=== PATIENT | female | born 1980 | race Caucasian/White ===

== ENCOUNTER 2019-07-21 06:44 | Emergency (ER) | payer SELFPAY ==
[2019-07-21 07:21] VITALS: BMI 28.3
--- NOTE | 2019-07-21 07:40 | PDOC ---
History of Present Illness - General Chief Complaint: Pain, Acute Stated Complaint: VOMITING Time Seen by Provider: 07/21/19 07:30 - History of Present Illness Initial Comments: 07/21/19 07:37 CHIEF COMPLAINT: left flank pain, vomiting HISTORY OF PRESENT ILLNESS: 39 yo F presents to ED with vomiting 15-20 times a day since . Patient reports that she went to urgent care on and was diagnosed with pyelonephritis. She has been compliant with taking Cipro and Bactrim since but patient denies any improvement in symptoms. She reports that she has developed left flank pain since . Endorses fever yesterday that was resolved after taking Tylenol. Patient denies any diarrhea. No recent travel or sick contacts. PAST MEDICAL HISTORY: Denies past medical history FAMILY HISTORY: Denies SOCIAL HISTORY: Denies tobacco, alcohol, illicit drug use. SURGICAL HISTORY: Denies ALLERGIES: No known drug allergies REVIEW OF SYSTEMS General/Constitutional: Fever yesterday. Denies weakness, weight change. HEENT: Denies change in vision. Denies ear pain or discharge. Denies sore throat. Cardiovascular: Denies chest pain or shortness of breath. Respiratory: Denies cough, wheezing, or hemoptysis. Gastrointestinal: Persistent vomiting x 4 days. Denies diarrhea, constipation, rectal bleeding. Genitourinary: Denies dysuria, frequency, or change in urination. Musculoskeletal: Left flank pain. Denies joint or muscle swelling or pain. Denies neck or back pain. Skin and breasts: Denies rash or easy bruising. Neurologic: Denies headache, vertigo, loss of consciousness, or loss of sensation. Psychiatric: Denies depression or anxiety. PHYSICAL EXAM General Appearance: Well-appearing, appropriately dressed. No apparent distress. HEENT: EOMI, PERRLA, normal ENT inspection, normal voice, TMs normal, pharynx normal. No conjunctival pallor. No photophobia, scleral icterus. Neck: Supple. Trachea midline. No tenderness, rigidity, carotid bruit, stridor , lymphadenopathy, or thyromegaly. Respiratory/Chest: Lungs CTAB. No shortness of breath, chest tenderness, respiratory distress, accessory muscle use. No crackles, rales, rhonchi, stridor , wheezing, dullness Cardiovascular: RRR. S1, S2. No JVD, murmur, bradycardia, tachycardia. Vascular Pulses: Dorsalis-Pedis (R): 2+, Dorsalis-Pedis (L): 2+ Gastrointestinal/Abdominal: Normal bowel sounds. Abdomen soft, non-distended. No tenderness or rebound tenderness. No organomegaly, pulsatile mass, guarding , hernia, hepatomegaly, splenomegaly. Lymphatic: No adenopathy, tenderness. Musculoskeletal/Extremities: L CVA tenderness.FROM of all extremities, normal capillary refill. Pelvis Stable. No tenderness to extremities, pedal edema, swelling, erythema or deformity. Integumentary: Appropriate color, dry, warm. 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 Fully oriented, alert. Appropriate mood/affect. Motor strength 5/5. No appreciable EOM palsy, facial droop or sensory deficit. Past History - Past Medical History Allergies/Adverse Reactions: Allergies Allergy/AdvReac Type Severity Reaction Status Date / Time No Known Allergies Allergy Verified 07/21/19 07:26 Home Medications: Ambulatory Orders No Home Medications 0 dose .ROUTE UTDICT 10/18/12 Ibuprofen [Ibu] 600 mg PO TID #20 tablet 07/21/19 Ondansetron HCl [Zofran] 4 mg PO TID PRN #30 tablet 07/21/19 Tamsulosin HCl [Flomax] 0.4 mg PO DAILY #14 cap.er.24h 07/21/19 COPD: No - Immunization History Td Vaccination: Yes - Psycho Social/Smoking Cessation Hx Smoking Status: No Smoking History: Never smoked Number of Cigarettes Smoked Daily: 0 Information on smoking cessation initiated: No Hx Alcohol Use: No Drug/Substance Use Hx: No *Physical Exam - Vital Signs Last Vital Signs Temp Pulse Resp BP Pulse Ox 99.7 F H 99 H 14 118/72 99 07/21/19 07:16 07/21/19 07:16 07/21/19 07:16 07/21/19 07:16 07/21/19 07:16 ED Treatment Course - LABORATORY CBC & Chemistry Diagram: 07/21/19 09:55 07/21/19 08:20 Medical Decision Making - Medical Decision Making 07/21/19 08:05 39 yo F presents to ED with vomiting 15-20 times a day since . -labs, urine -Tylenol, Zofran Discharge - Discharge Information Problems reviewed: Yes Clinical Impression/Diagnosis: Kidney stone on left side Condition: Stable Disposition: HOME - Admission No - Additional Discharge Information Prescriptions: Ibuprofen [Ibu] 600 mg PO TID #20 tablet Ondansetron HCl [Zofran] 4 mg PO TID PRN #30 tablet PRN Reason: Nausea And/Or Vomiting Tamsulosin HCl [Flomax] 0.4 mg PO DAILY #14 cap.er.24h - Follow up/Referral - Patient Discharge Instructions Patient Printed Discharge Instructions: DI for Kidney Stones Additional Instructions: As discussed, please continue taking the antibiotics that were prescribed to you by the urgent care clinic. Take all new medications in addition as prescribed. Follow-up with the urologist referral that was provided at the urgent care clinic. If you develop any persistent vomiting, diarrhea, fever, or pain unrelieved by the medications provided, or you develop any new or worsening symptoms, please return to the ER immediately. - Post Discharge Activity
[2019-07-21] MEDS ORDERED: ACETAMINOPHEN 500 MG TABLET (FP) PO ONE (07:41)
[2019-07-21] MEDS ORDERED: ACETAMINOPHEN 325 MG TABLET (FP) ONE (07:52)
[2019-07-21] MEDS ORDERED: ONDANSETRON 4 MG/2 ML VIAL IVPUSH ONE (07:59)
--- NOTE | 2019-07-21 08:10 | PDOC ---
*Physical Exam - Vital Signs Last Vital Signs Temp Pulse Resp BP Pulse Ox 99.7 F H 99 H 14 118/72 99 07/21/19 07:16 07/21/19 07:16 07/21/19 07:16 07/21/19 07:16 07/21/19 07:16 ED Treatment Course - LABORATORY CBC & Chemistry Diagram: 07/21/19 09:55 07/21/19 08:20 Medical Decision Making - Medical Decision Making 07/21/19 08:10 Pt seen by Midlevel Provider under my direct supervision I was available for consultation Ancillary studies reviewed CT - 3mm nonobstructing calculus upper pole left kidney Laboratory Tests 07/21/19 07/21/19 07/21/19 08:20 08:20 08:20 WBC Hgb Hct Plt Count BUN 9.2 Creatinine 0.8 Lactic Acid Urine Ketones 3+ H Urine Blood 3+ H Ur Leukocyte Esterase Negative Urine WBC (Auto) 1-4 Urine RBC (Auto) 0-3 Urine HCG, Qual Negative 07/21/19 07/21/19 08:20 09:55 WBC 7.5 Hgb 11.7 Hct 34.7 Plt Count 202 BUN Creatinine Lactic Acid 1.3 Urine Ketones Urine Blood Ur Leukocyte Esterase Urine WBC (Auto) Urine RBC (Auto) Urine HCG, Qual I agree with plan as outlined by Midlevel Provider 07/21/19 10:54 07/21/19 12:54 Discharge - Discharge Information Problems reviewed: Yes Clinical Impression/Diagnosis: Kidney stone on left side Condition: Stable Disposition: HOME - Admission No - Additional Discharge Information Prescriptions: Ibuprofen [Ibu] 600 mg PO TID #20 tablet Ondansetron HCl [Zofran] 4 mg PO TID PRN #30 tablet PRN Reason: Nausea And/Or Vomiting Tamsulosin HCl [Flomax] 0.4 mg PO DAILY #14 cap.er.24h - Follow up/Referral - Patient Discharge Instructions Patient Printed Discharge Instructions: DI for Kidney Stones Additional Instructions: As discussed, please continue taking the antibiotics that were prescribed to you by the urgent care clinic. Take all new medications in addition as prescribed. Follow-up with the urologist referral that was provided at the urgent care clinic. If you develop any persistent vomiting, diarrhea, fever, or pain unrelieved by the medications provided, or you develop any new or worsening symptoms, please return to the ER immediately. - Post Discharge Activity
[2019-07-21] MEDS ORDERED: ONDANSETRON 4 MG/2 ML VIAL ONE (08:39)
[2019-07-21 09:26] LABS: ALBUMIN 3.1 g/dl (3.4-5.0); BILIRUBIN,TOTAL 0.4 mg/dL (0.2-1); BLOOD UREA NITROGEN 9.2 mg/dL (7-18); CALCIUM 8.3 mg/dL (8.5-10.1); CREATININE 0.8 mg/dL (0.55-1.3); POTASSIUM 3.4 mmol/L (3.5-5.1); TOT PROT 7.4 g/dl (6.4-8.2)
[2019-07-21 10:07] LABS: BASO % 0.2 % (0-2.0); HEMATOCRIT 34.7 % (32.4-45.2); HEMOGLOBIN 11.7 GM/dL (10.7-15.3); LYMPH % 10.6 % (8-40); MCH 27.9 pg (25.7-33.7); MCHC 33.5 g/dl (32.0-36.0); MEAN CELL VOLUME 83.1 fl (80-96); MEAN PLT VOLUME 8.9 fl (7.5-11.1); NEUT % 85.2 % (42.8-82.8); PLATELET COUNT 202 K/MM3 (134-434); RBC 4.18 M/mm3 (3.60-5.2); RDW 15.2 % (11.6-15.6); WHITE BLOOD COUNT 7.5 K/mm3 (4.0-10.0)
[2019-07-21 10:47] LABS: URINE APPEARANCE CLEAR; URINE BILIRUBIN NEGATIVE (NEGATIVE); URINE COLOR DK YELLOW; URINE GLUCOSE (UA) NEGATIVE (NEGATIVE); URINE KETONE 3+ (NEGATIVE); URINE LEUK ESTERASE NEGATIVE (NEGATIVE); URINE NITRITE NEGATIVE (NEGATIVE); URINE PROTEIN 2+ (NEGATIVE); URINE UROBILINOGEN 0.2 mg/dL (0.2-1.0)
[2019-07-21] MEDS ORDERED: SODIUM CHLORIDE 0.9% 500 ML INFUS.BAG IV ONE (11:11)
[2019-07-21 11:35] LABS: EPI CELLS RARE /HPF (0-5/HPF); URINE RBC 0-3 /hpf (0-4)
[2019-07-21 11:36] LABS: URINE BACTERIA NONE SEEN /hpf (NEGATIVE)
[2019-07-21 12:05] VITALS: BP 119/69; PULSE 79; TEMP 98
== END 2019-07-21 12:53 | disposition home or self-care (01) ==
LOC: JER 06:44
PROC: 3E033GC Introduction of Other Therapeutic Substance into Peripheral Vein, Percutaneous Approach (ICD-10-PCS; principal; 2019-07-21)
DX: N20.0 Calculus of kidney (principal)
CPT/HCPCS: 36415; 74176-TC; 80053; 81003; 83605; 83690; 84703; 85025; 87040; 87086; 99282-25

== ENCOUNTER 2020-06-21 12:56 | Emergency (ER) | payer BC ==
[2020-06-21 13:01] VITALS: BMI 30.2
--- OUTSIDE RECORDS SUMMARY | 2020-06-21 13:23 | XMS ---
:1980 Author Organization [facility] Support Name Relationship Address Phone CROWN AWARDS Unavailable [address] [place] [address] CROWN REWARDS Unavailable [address] [phone] [place] [address] SAMMY, RADHA FRIEND [address] [facility] [place] [address] Re-disclosure Warning The records that you are about to access may contain information from federally- assisted alcohol or drug abuse programs. If such information is present, then the following federally mandated warning applies: This information has been disclosed to you from records protected by federal confidentiality rules (42 CFR part 2). The federal rules prohibit you from making any further disclosure of this information unless further disclosure is expressly permitted by the written consent of the person to whom it pertains or as otherwise permitted by 42 CFR part 2. A general authorization for the release of medical or other information is NOT sufficient for this purpose. The Federal rules restrict any use of the information to criminally investigate or prosecute any alcohol or drug abuse patient.The records that you are about to access may contain highly sensitive health information, the redisclosure of which is protected by Article 27-F of the [facility] Public Health law. If you continue you may haveaccess to information: Regarding HIV / AIDS; Provided by facilities licensed or operated by the [facility] Office of Mental Health; or Provided by the [facility] Office for People With Developmental Disabilities. If such information is present, then the following [facility] mandated warning applies: This information has been disclosed to you from confidential records which are protected by state law. State law prohibits you from making any further disclosure of this information without the specific written consent of the person to whom it pertains, or as otherwise permitted by law. Any unauthorized further disclosure in violation of state law may result in a fine or skilled nursing sentence or both. A general authorization for the release of medical or other information is NOT sufficient authorization for further disclosure. Insurance Providers Payer name Policy type Policy ID Covered Covered green party's Policy P susanna / Coverage green party ID relationship to Patel Inf ormation type patel BC OUT OF [id number] SP [id number] [address] SELF PAY SP INSURANCE HIP MEDICAID [id number] SP [id number]
--- NOTE | 2020-06-21 13:56 | PDOC ---
History of Present Illness - General Chief Complaint: Nausea/Vomiting Stated Complaint: VOMITING/NAUSEA Time Seen by Provider: 06/21/20 13:21 History Source: Patient - History of Present Illness Timing/Duration: reports: other (2 days) Abdominal Pain Onset Location: reports: other Past History - Medical History Allergies/Adverse Reactions: Allergies Allergy/AdvReac Type Severity Reaction Status Date / Time No Known Allergies Allergy Verified 06/21/20 12:59 Home Medications: Ambulatory Orders No Home Medications 0 dose .ROUTE UTDICT 10/18/12 Ibuprofen [Ibu] 600 mg PO TID #20 tablet 07/21/19 Ondansetron HCl [Zofran] 4 mg PO TID PRN #30 tablet 07/21/19 Tamsulosin HCl [Flomax] 0.4 mg PO DAILY #14 cap.er.24h 07/21/19 Ibuprofen [Motrin -] 800 mg PO Q6H #30 tablet 06/21/20 Sulfamethoxazole/Trimethoprim [Bactrim Ds -] 1 tab PO BID #14 tablet 06/21/20 COPD: No - Reproductive History Is Patient Now?: No - Immunization History Td Vaccination: Yes - Psycho-Social/Smoking History Smoking Status: No Smoking History: Never smoked Number of Cigarettes Smoked Daily: 0 - Substance Abuse Hx (Audit-C & DAST Scrn) How often the patient has a drink containing alcohol: Never Score: In Men: 4 or > Positive; In Women: 3 or > Positive: 0 Screen Result (Pos requires Nsg. Audit-10AR): Negative In the last yr the pt used illegal drug/Rx for NonMed reason: No Score: Yes response is considered Positive: 0 Screen Result (Positive result requires Nsg. DAST-10): Negative Review of Systems - Review of Systems Constitutional: Yes: Fever ABD/GI: Yes: Nausea, Vomiting. No: Blood Streaked Bowels, Constipated, Diarrhea, Rectal Bleeding : No: Dysuria, Flank Pain *Physical Exam - Vital Signs Last Vital Signs Temp Pulse Resp BP Pulse Ox 99.0 F 107 H 18 120/77 99 06/21/20 12:59 06/21/20 12:59 06/21/20 12:59 06/21/20 12:59 06/21/20 12:59 - Physical Exam General Appearance: Yes: Appropriately Dressed. No: Apparent Distress HEENT: positive: Normal Voice Neck: positive: Supple Respiratory/Chest: negative: Respiratory Distress Gastrointestinal/Abdominal: positive: Tender (poorly localied minimal ttp on exam) Musculoskeletal: negative: CVA Tenderness Integumentary: positive: Dry, Warm Neurologic: positive: Fully Oriented, Alert, Normal Mood/Affect ED Treatment Course - LABORATORY CBC & Chemistry Diagram: 06/21/20 13:51 06/21/20 13:51 Medical Decision Making - Medical Decision Making 06/21/20 14:04 40 yo morbidly obesed female, h/o uncomplicated renal stone (07/31), s/p remote osmin, here w/ lower abd pain w/ n/v and low grade x 2 days. No dysuria, vag discharge or change in BM. No h/o similar episode. Does not feel like renal stone. Menses finished 4 days ago See exam R/o diverticulitis vs uti/pyelo vs recurrent renal stone, unlikely appendicitis Exam remarkable for heart rate of 107 with poorly localized tenderness to lower abdomen on exam pain control -labs -CT 06/21/20 14:07 06/21/20 16:31 CT read as ~97cm cyst within the upper pelvis that was seen on CT July of last year when cyst measured 8 x 6 cm. Per radiology, this structure appears to be separate from the ovaries. Also seen is an "interval development of dilated jejunal bowel loop within the left paramedian aspect of the abdomen" which could be on the basis of mild to early SBO. Patient is passing gas and having bowel movements so SBO unlikely at this time. No e/o appy/diverticulitis on CT. Labs unremarkable, mild transaminitis seen on prior labs. UA w/ ~700 bacteria w/ 500s wbc and 2+ LE. Will get ultrasound at this time to better evaluate cystic structure seen in pelvis. Possibly treat for ? early pyelo 06/21/20 19:07 Ultrasound read as no uterine mass. There is bilateral ovarian cysts with no evidence of torsion and about 7 x 9 cm cyst in the R upper adnexa. On reassessment patient states she feels significantly better and well enough to go home. Repeat abdominal exam benign. Will treat for possible pyelo given UA results Upon discharge, rpt HR 97 w/ T 97F. No further e/o n/v. Will f/u on ucx. Strict return precautions given to patient. Patient also instructed that she needs to follow-up with her [facility] given this chronic cystlike structure in her right pelvis. Discharge - Discharge Information Problems reviewed: Yes Clinical Impression/Diagnosis: Lower abdominal pain Fever Qualifiers: Fever type: unspecified Qualified Code(s): R50.9 - Fever, unspecified Condition: Improved Disposition: HOME - Additional Discharge Information Prescriptions: Sulfamethoxazole/Trimethoprim [Bactrim Ds -] 1 tab PO BID #14 tablet Ibuprofen [Motrin -] 800 mg PO Q6H #30 tablet - Follow up/Referral - Patient Discharge Instructions Additional Instructions: You were treated for possible early kidney infection as there were no other findings on your blood work, CAT scan or ultrasound to explain your symptoms. Please take medication as directed but if symptoms persist and or worsen, return to the ED immediately - Post Discharge Activity
[2020-06-21] MEDS ORDERED: SODIUM CHLORIDE 1,000 ML IV STA (14:00)
[2020-06-21] MEDS ORDERED: KETOROLAC TROMETHAMINE 30 MG/1 ML VIAL IVPUSH ONE (14:00)
[2020-06-21] MEDS ORDERED: ONDANSETRON 4 MG/2 ML VIAL IVPUSH ONE (14:00)
[2020-06-21] MEDS ORDERED: KETOROLAC TROMETHAMINE 30 MG/1 ML VIAL ONE (14:02)
[2020-06-21 14:32] LABS: BASO % 0.3 % (0-2.0); HEMATOCRIT 38.7 % (32.4-45.2); HEMOGLOBIN 13.2 GM/dL (10.7-15.3); LYMPH % 14.6 % (8-40); MCH 29.7 pg (25.7-33.7); MCHC 34.2 g/dl (32.0-36.0); MEAN CELL VOLUME 86.9 fl (80-96); MEAN PLT VOLUME 9.5 fl (7.5-11.1); NEUT % 81.1 % (42.8-82.8); PLATELET COUNT 196 K/MM3 (134-434); RBC 4.45 M/mm3 (3.60-5.2); RDW 14.9 % (11.6-15.6); WHITE BLOOD COUNT 10.5 K/mm3 (4.0-10.0)
[2020-06-21 14:38] LABS: EPI CELLS 6 /uL (0-25.1); HCG,QUALITATIVE URINE Negative; HYALINE CASTS 20 /uL (0-3.1); URINE APPEARANCE CLEAR; URINE BACTERIA 746 /uL (0-1359); URINE BILIRUBIN NEGATIVE (NEGATIVE); URINE COLOR DK YELLOW; URINE GLUCOSE (UA) NEGATIVE (NEGATIVE); URINE KETONE 1+ (NEGATIVE); URINE LEUK ESTERASE 2+ (NEGATIVE); URINE NITRITE NEGATIVE (NEGATIVE); URINE PROTEIN 2+ (NEGATIVE); URINE RBC 244 /uL (0-23.9); URINE WBC 523 /uL (0-25.8)
[2020-06-21 14:59] LABS: ALBUMIN 3.9 g/dl (3.4-5.0); BILIRUBIN,TOTAL 0.7 mg/dL (0.2-1); BLOOD UREA NITROGEN 9.1 mg/dL (7-18); CALCIUM 8.5 mg/dL (8.5-10.1); POTASSIUM 3.3 mmol/L (3.5-5.1); TOT PROT 8.1 g/dl (6.4-8.2)
[2020-06-21] MEDS ORDERED: ACETAMINOPHEN 325 MG TABLET (FP) PO ONE (17:46)
[2020-06-21] MEDS ORDERED: CEFTRIAXONE 1 GM in DEXTROSE 5%-WATER - 100 ML IVPB ONE (17:46)
[2020-06-21] MEDS ORDERED: ACETAMINOPHEN 325 MG TABLET (FP) ONE (17:53)
[2020-06-21] MEDS ORDERED: CEFTRIAXONE 1 GM/50 ML BAG ONE (17:53)
[2020-06-21 19:38] VITALS: BP 109/67; PULSE 91; TEMP 99.5
== END 2020-06-21 19:38 | disposition home or self-care (01) ==
LOC: JER 12:56
PROC: 3E03329 Introduction of Other Anti-infective into Peripheral Vein, Percutaneous Approach (ICD-10-PCS; principal; 2020-06-21)
PROC: 3E033GC Introduction of Other Therapeutic Substance into Peripheral Vein, Percutaneous Approach (ICD-10-PCS; 2020-06-21)
PROC: 3E0337Z Introduction of Electrolytic and Water Balance Substance into Peripheral Vein, Percutaneous Approach (ICD-10-PCS; 2020-06-21)
DX: R10.30 Lower abdominal pain, unspecified (principal); R50.9 Fever, unspecified
CPT/HCPCS: 36415; 74177-TC; 76856-TC; 80053; 81003; 84703; 85025; 87086; 87186; 99285-25; Q9967

== ENCOUNTER 2023-07-31 11:26 | Inpatient (IN) | payer BC, OTHER ==
[2023-07-31] MEDS ORDERED: SODIUM CHLORIDE 1,000 ML IV STA ×2 (12:11→17:28)
[2023-07-31] MEDS ORDERED: ACETAMINOPHEN 1000 MG/100 ML BAG IVPB ONE (12:30)
[2023-07-31] MEDS ORDERED: ACETAMINOPHEN INJECTION 100 ML IVPB ONE (12:44)
[2023-07-31 12:48] LABS: BASO % 0.8 % (0-2.0); EOS % 2.3 % (0-4.5); HEMATOCRIT 44.2 % (32.4-45.2); HEMOGLOBIN 15.2 GM/dL (10.7-15.3); LYMPH % 33.1 % (8-40); MCH 29.4 pg (25.7-33.7); MCHC 34.4 g/dl (32.0-36.0); MEAN CELL VOLUME 85.2 fl (80-96); MEAN PLT VOLUME 9.9 fl (7.5-11.1); MONO % 4.2 % (3.8-10.2); NEUT % 59.6 % (42.8-82.8); PLATELET COUNT 227 10^3/uL (134-434); RBC 5.19 M/mm3 (3.60-5.2); RDW 13.3 % (11.6-15.6); WHITE BLOOD COUNT 10.1 K/mm3 (4.0-10.0)
[2023-07-31 12:52] LABS: HCG,QUALITATIVE URINE Negative
[2023-07-31 13:08] LABS: POTASSIUM 3.7 mmol/L (3.5-5.1)
[2023-07-31 13:10] LABS: PH,URINE 5.5 (5.0-8.0); URINE APPEARANCE CLOUDY; URINE BILIRUBIN NEGATIVE (NEGATIVE); URINE COLOR YELLOW; URINE GLUCOSE (UA) 4+ (NEGATIVE); URINE KETONE 40 mg/dl (NEGATIVE); URINE PROTEIN 2+ (NEGATIVE)
[2023-07-31 13:11] LABS: CALCIUM 9.3 mg/dL (8.5-10.1); URINE LEUK ESTERASE NEGATIVE (NEGATIVE); URINE NITRITE NEGATIVE (NEGATIVE); URINE UROBILINOGEN 0.2 mg/dL (0.2-1.0)
[2023-07-31 13:12] LABS: BLOOD UREA NITROGEN 10.6 mg/dL (7-18)
[2023-07-31 13:15] LABS: CREATININE 0.9 mg/dL (0.55-1.3); TOT PROT 7.9 g/dl (6.4-8.2)
[2023-07-31 13:16] LABS: BILIRUBIN,TOTAL 0.5 mg/dL (0.2-1)
[2023-07-31] MEDS ORDERED: ONDANSETRON 4 MG/2 ML VIAL IVPUSH ONE (14:19)
[2023-07-31] MEDS ORDERED: ONDANSETRON 4 MG/2 ML VIAL ONE (14:26)
[2023-07-31] MEDS ORDERED: morphine CARPU-JECT 2 MG/1 ML DISP.SYRIN IVPUSH ONE ×2 (14:39→17:28)
[2023-07-31 18:32] LABS: ACTIVATED PTT 31.1 SECONDS (25.2-36.5); INR 1.09 (0.83-1.09); PROTHROMBIN TIME (PATIENT) 12.6 SEC (9.7-13.0)
[2023-07-31] MEDS ORDERED: INSULIN SLIDING SCALE (NOVOLOG) 1 VIAL SQ SCH ×2 (22:00→22:29)
[2023-07-31] MEDS ORDERED: morphine SULFATE 4 MG/ML VIAL IVPUSH PRN (22:05)
[2023-07-31] MEDS: LISINOPRIL 10 MG TABLET PO SCH (22:38)
[2023-07-31 23:28] VITALS: BMI 28.9
[2023-08-01] MEDS: INSULIN SLIDING SCALE (NOVOLOG) 1 VIAL SQ SCH ×4 (06:05→22:36)
[2023-08-01] MEDS: ACETAMINOPHEN 325 MG TABLET (FP) PO PRN ×2 (06:08→17:43)
[2023-08-01 09:16] LABS: HEMATOCRIT 42.4 % (32.4-45.2); HEMOGLOBIN 13.9 GM/dL (10.7-15.3); MCH 28.7 pg (25.7-33.7); MCHC 32.8 g/dl (32.0-36.0); MEAN CELL VOLUME 87.5 fl (80-96); MEAN PLT VOLUME 10.4 fl (7.5-11.1); PLATELET COUNT 225 10^3/uL (134-434); RBC 4.85 M/mm3 (3.60-5.2); RDW 13.2 % (11.6-15.6); WHITE BLOOD COUNT 9.6 K/mm3 (4.0-10.0)
[2023-08-01] MEDS: HYDROCHLOROTHIAZIDE 12.5 MG CAPSULE (FP) PO SCH (09:23)
[2023-08-01] MEDS: ENOXAPARIN NA (PORCINE) 40 MG/0.4 ML DISP.SYRIN SQ SCH (09:24)
[2023-08-01 09:35] LABS: POTASSIUM 3.5 mmol/L (3.5-5.1)
[2023-08-01 09:44] LABS: ALBUMIN 3.4 g/dl (3.4-5.0); BLOOD UREA NITROGEN 8.3 mg/dL (7-18); CALCIUM 8.8 mg/dL (8.5-10.1)
[2023-08-01 09:45] LABS: MAGNESIUM 1.9 mg/dL (1.8-2.4)
[2023-08-01 09:48] LABS: CREATININE 0.7 mg/dL (0.55-1.3); PHOSPHOROUS 2.7 mg/dL (2.5-4.9)
[2023-08-01 09:50] LABS: TOT PROT 7.3 g/dl (6.4-8.2)
[2023-08-01 09:51] LABS: BILIRUBIN,TOTAL 0.9 mg/dL (0.2-1)
[2023-08-01] MEDS ORDERED: INSULIN (NOVOLOG MIX 70/30) 100 UNITS/ML MDV SQ ONE (11:02)
[2023-08-01] MEDS ORDERED: INSULIN (NOVOLOG) ASPART 100 UNITS/ML 10ML VIAL ONE (11:06)
[2023-08-01] MEDS ORDERED: oxyCODONE HCL 5 MG TABLET PO PRN ×2 (12:43)
[2023-08-01] MEDS: oxyCODONE HCL 5 MG TABLET PO PRN (13:30)
[2023-08-01] MEDS: INSULIN (NOVOLOG) ASPART 100 UNITS/ML 10ML VIAL SQ SCH (16:37)
[2023-08-01] MEDS: ONDANSETRON 4 MG/2 ML VIAL IVPUSH PRN (17:45)
[2023-08-01] MEDS: LISINOPRIL 10 MG TABLET PO SCH ×2 (21:52→22:34)
[2023-08-01] MEDS: INSULIN (LEVEMIR) 100 UNITS/ML UNITS SQ SCH (21:53)
[2023-08-02] MEDS: INSULIN SLIDING SCALE (NOVOLOG) 1 VIAL SQ SCH ×4 (06:36→21:47)
[2023-08-02] MEDS: INSULIN (NOVOLOG) ASPART 100 UNITS/ML 10ML VIAL SQ SCH ×3 (06:38→16:47)
[2023-08-02] MEDS: INSULIN (LEVEMIR) 100 UNITS/ML UNITS SQ SCH ×2 (06:39→21:47)
[2023-08-02 09:20] LABS: BASO % 0.7 % (0-2.0); EOS % 4.1 % (0-4.5); HEMATOCRIT 40.8 % (32.4-45.2); HEMOGLOBIN 14.2 GM/dL (10.7-15.3); LYMPH % 30.6 % (8-40); MCH 29.7 pg (25.7-33.7); MCHC 34.7 g/dl (32.0-36.0); MEAN CELL VOLUME 85.5 fl (80-96); MEAN PLT VOLUME 10.4 fl (7.5-11.1); MONO % 5.2 % (3.8-10.2); NEUT % 59.4 % (42.8-82.8); PLATELET COUNT 222 10^3/uL (134-434); RBC 4.77 M/mm3 (3.60-5.2); RDW 13.5 % (11.6-15.6); WHITE BLOOD COUNT 6.8 K/mm3 (4.0-10.0)
[2023-08-02 09:44] LABS: POTASSIUM 3.1 mmol/L (3.5-5.1)
[2023-08-02] MEDS: ENOXAPARIN NA (PORCINE) 40 MG/0.4 ML DISP.SYRIN SQ SCH (09:58)
[2023-08-02] MEDS: HYDROCHLOROTHIAZIDE 12.5 MG CAPSULE (FP) PO SCH (09:59)
[2023-08-02 10:07] LABS: CARCINOEMBRYONIC ANTIGEN 2.6 ng/mL (0.0-4.7)
[2023-08-02 10:08] LABS: CALCIUM 8.9 mg/dL (8.5-10.1)
[2023-08-02 10:09] LABS: ALBUMIN 3.3 g/dl (3.4-5.0); BLOOD UREA NITROGEN 11.4 mg/dL (7-18); MAGNESIUM 2.1 mg/dL (1.8-2.4)
[2023-08-02 10:11] LABS: CREATININE 0.7 mg/dL (0.55-1.3)
[2023-08-02 10:12] LABS: BILIRUBIN,TOTAL 0.9 mg/dL (0.2-1)
[2023-08-02 10:13] LABS: TOT PROT 6.9 g/dl (6.4-8.2)
[2023-08-02] MEDS ORDERED: SODIUM CHLORIDE 1,000 ML IV SCH (12:45)
[2023-08-02] MEDS: LIDOCAINE 4% PATCH TP SCH (13:04)
[2023-08-02] MEDS: KETOROLAC TROMETHAMINE 10 MG TABLET PO PRN (13:05)
[2023-08-02] MEDS ORDERED: POTASSIUM CHLORIDE ORAL LIQUID 20 MEQ/15 ML PO ONE (13:34)
[2023-08-02] MEDS: ONDANSETRON 4 MG/2 ML VIAL IVPUSH PRN (19:12)
[2023-08-02] MEDS ORDERED: INSULIN (NOVOLOG) ASPART 100 UNITS/ML 10ML VIAL ONE (21:33)
[2023-08-02] MEDS: LIDOCAINE PATCH REMOVAL MC SCH (21:55)
[2023-08-03] MEDS: INSULIN (LEVEMIR) 100 UNITS/ML UNITS SQ SCH ×2 (06:10→22:12)
[2023-08-03] MEDS: INSULIN (NOVOLOG) ASPART 100 UNITS/ML 10ML VIAL SQ SCH ×3 (06:11→17:33)
[2023-08-03] MEDS: INSULIN SLIDING SCALE (NOVOLOG) 1 VIAL SQ SCH ×4 (06:14→22:13)
[2023-08-03 09:57] LABS: BASO % 0.8 % (0-2.0); EOS % 4.2 % (0-4.5); HEMATOCRIT 40.3 % (32.4-45.2); HEMOGLOBIN 13.1 GM/dL (10.7-15.3); LYMPH % 33.4 % (8-40); MCH 28.5 pg (25.7-33.7); MCHC 32.4 g/dl (32.0-36.0); MEAN CELL VOLUME 87.9 fl (80-96); MEAN PLT VOLUME 10.2 fl (7.5-11.1); MONO % 5.5 % (3.8-10.2); NEUT % 56.1 % (42.8-82.8); PLATELET COUNT 199 10^3/uL (134-434); RBC 4.58 M/mm3 (3.60-5.2); RDW 13.2 % (11.6-15.6); WHITE BLOOD COUNT 5.6 K/mm3 (4.0-10.0)
[2023-08-03 10:05] LABS: POTASSIUM 3.4 mmol/L (3.5-5.1)
[2023-08-03] MEDS: ENOXAPARIN NA (PORCINE) 40 MG/0.4 ML DISP.SYRIN SQ SCH (10:33)
[2023-08-03] MEDS: LIDOCAINE 4% PATCH TP SCH (10:33)
[2023-08-03 10:34] LABS: CALCIUM 8.4 mg/dL (8.5-10.1)
[2023-08-03 10:35] LABS: BLOOD UREA NITROGEN 9.3 mg/dL (7-18); MAGNESIUM 2.1 mg/dL (1.8-2.4)
[2023-08-03 10:38] LABS: CREATININE 0.7 mg/dL (0.55-1.3)
[2023-08-03 10:39] LABS: TOT PROT 6.1 g/dl (6.4-8.2)
[2023-08-03 10:40] LABS: BILIRUBIN,TOTAL 0.5 mg/dL (0.2-1)
[2023-08-03] MEDS ORDERED: POTASSIUM CHLORIDE ORAL LIQUID 20 MEQ/15 ML PO ONE (12:49)
[2023-08-03] MEDS: LACTATED RINGERS SOLUTION 1,000 ML/1,000 ML INFUS.BAG IV SCH (17:42)
[2023-08-03] MEDS ORDERED: INSULIN (NOVOLOG) ASPART 100 UNITS/ML 10ML VIAL ONE (22:09)
[2023-08-03] MEDS: LIDOCAINE PATCH REMOVAL MC SCH (22:13)
[2023-08-04] MEDS: INSULIN (LEVEMIR) 100 UNITS/ML UNITS SQ SCH ×2 (06:48→22:05)
[2023-08-04] MEDS: INSULIN (NOVOLOG) ASPART 100 UNITS/ML 10ML VIAL SQ SCH ×3 (06:48→17:37)
[2023-08-04] MEDS: INSULIN SLIDING SCALE (NOVOLOG) 1 VIAL SQ SCH ×4 (06:52→22:14)
[2023-08-04 08:35] LABS: BASO % 0.7 % (0-2.0); EOS % 4.1 % (0-4.5); HEMATOCRIT 39.4 % (32.4-45.2); LYMPH % 40.1 % (8-40); MCH 28.9 pg (25.7-33.7); MEAN CELL VOLUME 87.8 fl (80-96); MEAN PLT VOLUME 9.7 fl (7.5-11.1); MONO % 5.6 % (3.8-10.2); NEUT % 49.5 % (42.8-82.8); PLATELET COUNT 189 10^3/uL (134-434); RBC 4.48 M/mm3 (3.60-5.2); RDW 13.2 % (11.6-15.6); WHITE BLOOD COUNT 5.9 K/mm3 (4.0-10.0)
[2023-08-04 09:50] LABS: POTASSIUM 3.6 mmol/L (3.5-5.1)
[2023-08-04 10:04] LABS: ALBUMIN 3.2 g/dl (3.4-5.0); BLOOD UREA NITROGEN 6.3 mg/dL (7-18)
[2023-08-04 10:05] LABS: BILIRUBIN,TOTAL 0.4 mg/dL (0.2-1)
[2023-08-04 10:06] LABS: CALCIUM 8.7 mg/dL (8.5-10.1); CREATININE 0.5 mg/dL (0.55-1.3); TOT PROT 6.4 g/dl (6.4-8.2)
[2023-08-04 10:07] LABS: MAGNESIUM 2.1 mg/dL (1.8-2.4)
[2023-08-04] MEDS: ENOXAPARIN NA (PORCINE) 40 MG/0.4 ML DISP.SYRIN SQ SCH (10:40)
[2023-08-04] MEDS: CEFTRIAXONE 1 GM in DEXTROSE 5%-WATER - 50 ML IVPB SCH (10:40)
[2023-08-04] MEDS: LIDOCAINE 4% PATCH TP SCH (10:41)
[2023-08-04] MEDS: POLYETHYLENE GLYCOL (HEALTHYLAX) 3350 17 GM PACKET PO SCH (10:41)
[2023-08-04] MEDS ORDERED: INSULIN (NOVOLOG) ASPART 100 UNITS/ML 10ML VIAL ONE ×2 (12:43→19:09)
[2023-08-04] MEDS: TAMSULOSIN HCL 0.4 MG CAP PO SCH (12:45)
[2023-08-04 15:08] LABS: INHIBIN B < 7.0 pg/mL (.)
[2023-08-04] MEDS: LACTATED RINGERS SOLUTION 1,000 ML/1,000 ML INFUS.BAG IV SCH (17:37)
[2023-08-04] MEDS: KETOROLAC TROMETHAMINE 10 MG TABLET PO PRN (17:59)
[2023-08-04] MEDS: LIDOCAINE PATCH REMOVAL MC SCH (22:07)
[2023-08-05] MEDS: INSULIN (NOVOLOG) ASPART 100 UNITS/ML 10ML VIAL SQ SCH ×3 (06:49→16:53)
[2023-08-05] MEDS: INSULIN (LEVEMIR) 100 UNITS/ML UNITS SQ SCH ×2 (06:49→22:39)
[2023-08-05 09:16] LABS: BASO % 0.7 % (0-2.0); EOS % 4.2 % (0-4.5); HEMOGLOBIN 13.1 GM/dL (10.7-15.3); MCH 28.9 pg (25.7-33.7); MCHC 32.9 g/dl (32.0-36.0); MEAN CELL VOLUME 87.8 fl (80-96); MEAN PLT VOLUME 9.7 fl (7.5-11.1); MONO % 5.5 % (3.8-10.2); NEUT % 52.6 % (42.8-82.8); PLATELET COUNT 196 10^3/uL (134-434); RBC 4.55 M/mm3 (3.60-5.2); RDW 13.3 % (11.6-15.6); WHITE BLOOD COUNT 5.3 K/mm3 (4.0-10.0)
[2023-08-05 09:21] LABS: INR 1.18 (0.83-1.09); PROTHROMBIN TIME (PATIENT) 13.7 SEC (9.7-13.0)
[2023-08-05 09:54] LABS: ALBUMIN 3.4 g/dl (3.4-5.0)
[2023-08-05 09:55] LABS: BLOOD UREA NITROGEN 5.1 mg/dL (7-18)
[2023-08-05 09:56] LABS: CALCIUM 8.4 mg/dL (8.5-10.1); MAGNESIUM 2.1 mg/dL (1.8-2.4)
[2023-08-05 09:57] LABS: CREATININE 0.6 mg/dL (0.55-1.3)
[2023-08-05 09:58] LABS: BILIRUBIN,TOTAL 0.8 mg/dL (0.2-1); TOT PROT 6.8 g/dl (6.4-8.2)
[2023-08-05] MEDS: CEFTRIAXONE 1 GM in DEXTROSE 5%-WATER - 50 ML IVPB SCH (10:19)
[2023-08-05] MEDS: LIDOCAINE 4% PATCH TP SCH (10:20)
[2023-08-05] MEDS: POLYETHYLENE GLYCOL (HEALTHYLAX) 3350 17 GM PACKET PO SCH (10:20)
[2023-08-05] MEDS: TAMSULOSIN HCL 0.4 MG CAP PO SCH (10:20)
[2023-08-05] MEDS: ENOXAPARIN NA (PORCINE) 40 MG/0.4 ML DISP.SYRIN SQ SCH (10:21)
[2023-08-05] MEDS: LACTATED RINGERS SOLUTION 1,000 ML/1,000 ML INFUS.BAG IV SCH ×2 (10:21→13:18)
[2023-08-05] MEDS: INSULIN SLIDING SCALE (NOVOLOG) 1 VIAL SQ SCH ×4 (11:17→22:39)
[2023-08-05] MEDS ORDERED: POTASSIUM CHLORIDE ORAL LIQUID 20 MEQ/15 ML PO ONE (15:15)
[2023-08-05] MEDS: KCL 10 MEQ IVPB 10 MEQ/100 ML INFUS.BAG IVPB SCH ×2 (15:31→17:09)
[2023-08-05] MEDS: oxyCODONE HCL 5 MG TABLET PO PRN (18:18)
[2023-08-05] MEDS ORDERED: INSULIN (NOVOLOG) ASPART 100 UNITS/ML 10ML VIAL ONE (22:29)
[2023-08-05] MEDS: LIDOCAINE PATCH REMOVAL MC SCH (22:41)
[2023-08-06] MEDS: oxyCODONE HCL 5 MG TABLET PO PRN ×2 (05:09→05:10)
[2023-08-06] MEDS: INSULIN SLIDING SCALE (NOVOLOG) 1 VIAL SQ SCH ×4 (06:12→21:15)
[2023-08-06] MEDS: INSULIN (LEVEMIR) 100 UNITS/ML UNITS SQ SCH ×2 (06:15→21:14)
[2023-08-06 08:31] LABS: BASO % 0.6 % (0-2.0); EOS % 6.1 % (0-4.5); HEMATOCRIT 38.5 % (32.4-45.2); HEMOGLOBIN 12.9 GM/dL (10.7-15.3); MCH 29.5 pg (25.7-33.7); MCHC 33.6 g/dl (32.0-36.0); MEAN CELL VOLUME 87.8 fl (80-96); MONO % 5.8 % (3.8-10.2); NEUT % 48.5 % (42.8-82.8); PLATELET COUNT 204 10^3/uL (134-434); RBC 4.38 M/mm3 (3.60-5.2); RDW 13.3 % (11.6-15.6); WHITE BLOOD COUNT 6.4 K/mm3 (4.0-10.0)
[2023-08-06 08:42] LABS: POTASSIUM 3.6 mmol/L (3.5-5.1)
[2023-08-06 08:44] LABS: BLOOD UREA NITROGEN 3.8 mg/dL (7-18); CALCIUM 8.3 mg/dL (8.5-10.1)
[2023-08-06 08:45] LABS: ALBUMIN 3.2 g/dl (3.4-5.0)
[2023-08-06 08:47] LABS: CREATININE 0.6 mg/dL (0.55-1.3)
[2023-08-06 08:49] LABS: BILIRUBIN,TOTAL 0.7 mg/dL (0.2-1); TOT PROT 6.3 g/dl (6.4-8.2)
[2023-08-06] MEDS: TAMSULOSIN HCL 0.4 MG CAP PO SCH (09:01)
[2023-08-06] MEDS: ENOXAPARIN NA (PORCINE) 40 MG/0.4 ML DISP.SYRIN SQ SCH (09:01)
[2023-08-06] MEDS: CEFTRIAXONE 1 GM in DEXTROSE 5%-WATER - 50 ML IVPB SCH (09:01)
[2023-08-06] MEDS: POLYETHYLENE GLYCOL (HEALTHYLAX) 3350 17 GM PACKET PO SCH (09:01)
[2023-08-06] MEDS: LIDOCAINE 4% PATCH TP SCH (09:01)
[2023-08-06] MEDS: LACTATED RINGERS SOLUTION 1,000 ML/1,000 ML INFUS.BAG IV SCH (18:07)
[2023-08-06] MEDS: LIDOCAINE PATCH REMOVAL MC SCH (21:14)
[2023-08-07] MEDS ORDERED: POLYETHYLENE GLYCOL 3350 255 GM BTL PO ONE (06:00)
[2023-08-07] MEDS: INSULIN SLIDING SCALE (NOVOLOG) 1 VIAL SQ SCH ×4 (06:59→22:41)
[2023-08-07] MEDS: INSULIN (LEVEMIR) 100 UNITS/ML UNITS SQ SCH ×2 (07:05→22:41)
[2023-08-07 08:12] LABS: BASO % 0.8 % (0-2.0); EOS % 7.4 % (0-4.5); HEMATOCRIT 40.6 % (32.4-45.2); HEMOGLOBIN 13.9 GM/dL (10.7-15.3); LYMPH % 37.4 % (8-40); MCH 29.7 pg (25.7-33.7); MCHC 34.3 g/dl (32.0-36.0); MEAN CELL VOLUME 86.7 fl (80-96); MEAN PLT VOLUME 9.8 fl (7.5-11.1); MONO % 5.5 % (3.8-10.2); NEUT % 48.9 % (42.8-82.8); PLATELET COUNT 217 10^3/uL (134-434); RBC 4.68 M/mm3 (3.60-5.2); RDW 13.3 % (11.6-15.6); WHITE BLOOD COUNT 6.1 K/mm3 (4.0-10.0)
[2023-08-07 08:32] LABS: POTASSIUM 3.9 mmol/L (3.5-5.1)
[2023-08-07 08:40] LABS: CALCIUM 9.1 mg/dL (8.5-10.1)
[2023-08-07 08:41] LABS: ALBUMIN 3.5 g/dl (3.4-5.0); BLOOD UREA NITROGEN 5.1 mg/dL (7-18); MAGNESIUM 2.4 mg/dL (1.8-2.4)
[2023-08-07 08:44] LABS: CREATININE 0.6 mg/dL (0.55-1.3)
[2023-08-07 08:46] LABS: BILIRUBIN,TOTAL 0.6 mg/dL (0.2-1)
[2023-08-07] MEDS: CEFTRIAXONE 1 GM in DEXTROSE 5%-WATER - 50 ML IVPB SCH (09:13)
[2023-08-07] MEDS: POLYETHYLENE GLYCOL (HEALTHYLAX) 3350 17 GM PACKET PO SCH (09:13)
[2023-08-07] MEDS: LIDOCAINE 4% PATCH TP SCH (09:13)
[2023-08-07] MEDS: ENOXAPARIN NA (PORCINE) 40 MG/0.4 ML DISP.SYRIN SQ SCH (09:14)
[2023-08-07] MEDS: TAMSULOSIN HCL 0.4 MG CAP PO SCH (09:18)
[2023-08-07] MEDS ORDERED: SODIUM CHLORIDE 250 ML IV STA (14:45)
[2023-08-07] MEDS: LACTATED RINGERS SOLUTION 1,000 ML/1,000 ML INFUS.BAG IV SCH (17:28)
[2023-08-07] MEDS: LIDOCAINE PATCH REMOVAL MC SCH (22:41)
[2023-08-08] MEDS ORDERED: SODIUM PHOSPHATE/NA BIPHOS 133 ML ENEMA RC ONE ×2 (06:00→06:05)
[2023-08-08] MEDS: INSULIN SLIDING SCALE (NOVOLOG) 1 VIAL SQ SCH ×3 (06:56→17:07)
[2023-08-08] MEDS: INSULIN (LEVEMIR) 100 UNITS/ML UNITS SQ SCH (07:07)
[2023-08-08 09:06] LABS: BASO % 0.7 % (0-2.0); EOS % 6.9 % (0-4.5); HEMATOCRIT 40.2 % (32.4-45.2); HEMOGLOBIN 13.1 GM/dL (10.7-15.3); INR 1.17 (0.83-1.09); MCH 28.8 pg (25.7-33.7); MCHC 32.6 g/dl (32.0-36.0); MEAN CELL VOLUME 88.2 fl (80-96); MEAN PLT VOLUME 9.4 fl (7.5-11.1); MONO % 5.8 % (3.8-10.2); NEUT % 53.6 % (42.8-82.8); PLATELET COUNT 205 10^3/uL (134-434); PROTHROMBIN TIME (PATIENT) 13.6 SEC (9.7-13.0); RBC 4.55 M/mm3 (3.60-5.2); RDW 13.8 % (11.6-15.6); WHITE BLOOD COUNT 5.9 K/mm3 (4.0-10.0)
[2023-08-08] MEDS: LIDOCAINE 4% PATCH TP SCH (09:28)
[2023-08-08] MEDS: ENOXAPARIN NA (PORCINE) 40 MG/0.4 ML DISP.SYRIN SQ SCH (09:29)
[2023-08-08] MEDS: POLYETHYLENE GLYCOL (HEALTHYLAX) 3350 17 GM PACKET PO SCH (09:29)
[2023-08-08] MEDS: TAMSULOSIN HCL 0.4 MG CAP PO SCH (09:30)
[2023-08-08 09:34] LABS: POTASSIUM 3.8 mmol/L (3.5-5.1)
[2023-08-08 09:40] LABS: ALBUMIN 3.3 g/dl (3.4-5.0); BLOOD UREA NITROGEN 5.2 mg/dL (7-18); CALCIUM 8.9 mg/dL (8.5-10.1); MAGNESIUM 2.3 mg/dL (1.8-2.4)
[2023-08-08 09:42] LABS: CREATININE 0.6 mg/dL (0.55-1.3)
[2023-08-08 09:44] LABS: BILIRUBIN,TOTAL 0.6 mg/dL (0.2-1); TOT PROT 6.7 g/dl (6.4-8.2)
[2023-08-08 16:44] VITALS: BP 115/68; PULSE 72; RESP 18; TEMP 98.7
== END 2023-08-08 18:30 | disposition home or self-care (01) | DRG 392 ==
LOC: JER 11:26 → JERBED 20:07 → UNDOADMOB 20:07 → INTOOBSV 20:07 → JERBED 21:39 → J8W 22:06 → JERBED 08-01 14:37 → OBSVTOIN 08-05 10:37
PROVIDERS: ADMIT Internal Medicine; ATTEND Nurse Practitioner Family
PROC: 0DBL8ZX Excision of Transverse Colon, Via Natural or Artificial Opening Endoscopic, Diagnostic (ICD-10-PCS; principal; 2023-08-08 11:15)
DX: R19.09 Other intra-abdominal and pelvic swelling, mass and lump (principal); N83.292 Other ovarian cyst, left side; N83.291 Other ovarian cyst, right side; E11.9 Type 2 diabetes mellitus without complications; N18.9 Chronic kidney disease, unspecified; R80.9 Proteinuria, unspecified; K76.0 Fatty (change of) liver, not elsewhere classified; D25.9 Leiomyoma of uterus, unspecified; R94.5 Abnormal results of liver function studies; N20.0 Calculus of kidney; E87.6 Hypokalemia; D12.3 Benign neoplasm of transverse colon; K64.8 Other hemorrhoids
CPT/HCPCS: 36415; 71046-TC-FY; 72197-TC; 74177-TC; 76705-TC; 76775-TC; 76830-TC; 80053; 81003; 82105; 82378; 82570; 82728; 82962; 83036; 83516; 83520; 83540; 83550; 83690; 83735; 84100; 84156; 84702; 84703; 85025; 85027; 85610; 85730; 86038; 86304; 86704; 86803; 87086; 87340; 87517; 88305-TC; 93005; 93010; 99285-25; G0378; Q9967

== ENCOUNTER 2023-08-29 04:02 | Day surgery (SDC) | payer OTHER ==
[2023-08-25 15:59] VITALS: BMI 30.8
[2023-08-29] MEDS ORDERED: BUPIVACAINE HCL/PF 0.5% (5MG/ML) 10 ML VIAL IJ ONE ×2 (10:07→10:59)
[2023-08-29] MEDS ORDERED: ceFAZolin SODIUM 1 GM VIAL IVPB ONE (10:45)
[2023-08-29 16:39] VITALS: BP 113/77; PULSE 65; RESP 20; TEMP 98
== END 2023-08-29 19:00 | disposition home or self-care (01) ==
LOC: JASU-SURG 04:02
PROVIDERS: ATTEND Obstetrics & Gynecology
PROC: 0UB24ZZ Excision of Bilateral Ovaries, Percutaneous Endoscopic Approach (ICD-10-PCS; principal; 2023-08-29 10:00)
DX: N83.292 Other ovarian cyst, left side (principal); N83.291 Other ovarian cyst, right side; K66.0 Peritoneal adhesions (postprocedural) (postinfection)
CPT/HCPCS: 81025; 82962; 86850; 86900; 86901; 87070; 87075; 87205; 88305-TC; 88307-TC; 94760